=== PATIENT | female | born 1950 | race Caucasian/White ===

== ENCOUNTER 2016-08-26 20:39 | Observation (INO) | payer OTHER ==
[~2016-08-26] VITALS: Ht 152.4 cm; Wt 69.7 kg
[~2016-08-26 20:39] MED LIST: ABILIFY5 MG PO; ADULT LOW DOSE81 M1 PO; ASPERDRINK81 MG PO; ASPIR 8181 M1 PO; ASPIRIN BUFFER325 MG PO; Aspirin E.C. PO; BENADRYL25 MG PO; BUDEPRION XL150 MG PO; BUPROBAN150 MG PO; BUPROPION HCL150 M1 PO; BUTALB-APAP-CA1 EACH PO; CALCARB 600 W-1 EACH PO; CALCIUM + VITA1 EAC1 PO; CALCIUM 600 +1 EAC1 PO; CALCIUM CARBON600 M1 PO; CALCIUM600 MG PO; CELECOXIB200 MG PO; CIPRO500 MG PO; CLONAZEPAM0.5 MG PO; CYCLOBENZAPRINE10 MG PO; DESYREL100 MG PO; DILAUDID2 MG PO; EFFEXOR XR150 MG PO; EFFEXOR XR75 MG PO; ENDOCET 5-3251 EACH PO; Effexor XR PO; FLAGYL500 MG PO; HYDROCHLOROTHIA25 MG PO; IRON325 M1 PO; K-DUR10 MEQ PO; KLONOPIN0.5 M1 PO; KLONOPIN1 MG PO; LEVAQUIN750 MG PO; LEVO-T50 MCG PO; LEVOTHROID25 MCG PO; LEVOTHYROXINE125 MCG PO; LOW DOSE ASPIRI81 M1 PO; Levothroid,Synthroid PO; METOPROLOL SUCC25 MG PO; OMEPRAZOLE20 M2 PO; OMEPRAZOLE40 M1 PO; OXYCODONE HCL5 MG PO; OXYCONTIN10 MG PO; PERCOCET 5/31 TABLET PO; PHENERGAN PO; PLAVIX75 MG PO; POTASSIUM CHLO20 ME1 PO; PRILOSEC20 MG PO; PROMETHAZINE HC25 M1 PO; PYRIDIUM200 MG PO; SENNA PLUS TAB1 EACH PO; SIMVASTATIN80 M1 PO; SIMVASTATIN80 MG PO; SYNTHROID100 MCG PO; SYNTHROID25 MCG PO; SYNTHROID88 MCG PO; TOPROL XL25 MG PO; TOPROL XL6.25 MG PO; TYLENOL EXTRA500 MG PO; TYLENOL REGULA325 MG PO; VALIUM2 MG PO; VITAMIN B12-FO1 EACH PO; Vitamin B-12 PO; WELLBUTRIN SR150 MG PO; XANAX0.5 MG PO; XARELTO10 MG PO; ZOCOR80 MG PO; ZOFRAN ODT4 MG PO; ZOFRAN ODT8 MG PO; ZYBAN 150 MG T150 MG PO; Zocor PO
[2016-08-26 21:20] LABS: HEMATOCRIT 38.5 % (36.0-46.0); MCH 29.6 PG (29.0-34.0); MCHC 33.8 G/DL (30.0-36.0); MCV 87.7 FL (83-99); MEAN PLAT.VOLUME 9.2 uM^3 (9.5-12.4); PLATELET COUNT 346 K/uL (156-360); RBC DIS.WIDTH-CV 12.1 % (11.8-14.6); RBC DIS.WIDTH-SD 38.7 % (39-53); RED BLOOD COUNT 4.39 M/uL (3.80-5.20)
[2016-08-26 21:22] LABS: ADD MIUA? NO; BILIRUBIN NEGATIVE; BLOOD NEGATIVE; COLOR YELLOW ((YELLOW)); GLUCOSE (STRIP) NEGATIVE; KETONES NEGATIVE; LEUKOCYTES NEGATIVE; NITRITE NEGATIVE; PROTEIN (STRIP) NEGATIVE; SPECIFIC GRAVITY 1.016 (1.000-1.030); UROBILINOGEN 0.2 MG/DL (0.2-1.0)
[2016-08-26 21:26] LABS: CHLORIDE 103 mEq/L (99-109); POTASSIUM 3.5 mEq/L (3.7-5.4); SODIUM 140 mEq/L (136-147)
[2016-08-26 21:27] LABS: WHITE BLOOD COUNT 19.2 K/uL (4.1-10.2)
[2016-08-26 21:28] LABS: GLUCOSE 115 mg/dL (70-99)
[2016-08-26 21:30] LABS: ANION GAP 12 MEQ/L (2-14); TOTAL BILIRUBIN 0.3 mg/dL (0.0-1.0)
[2016-08-26 21:32] LABS: ALKALINE PHOSPHATASE 96 IU/L (3-129); GFR ESTIMATE (CALCULATED) > 59 mL/min/
[2016-08-26 21:33] LABS: UREA NITROGEN (BUN) 14 mg/dL (9-23)
[2016-08-26 23:06] LABS: LIPASE 103 U/L (1.0-51.0)
[2016-08-26 23:33] LABS: AMYLASE 81 IU/L (1-118)
[2016-08-27] MEDS ORDERED: XANAX XR0.5 MG PO (00:44)
[2016-08-27] MEDS ORDERED: SYNTHROID75 MCG PO (00:45)
[2016-08-27 01:39] LABS: EOSINOPHIL (%) 0.4 % (0-5); MONOCYTE (%) 3.1 % (3-12); NEUTROPHIL (%) 65.7 % (45-76)
[2016-08-27 01:40] LABS: IMMATURE GRANULOCYTE (%) 0.3 % (0.0-0.7); LYMPHOCYTE COUNT 2.8 K/uL (1.0-2.8); MONOCYTE COUNT 0.3 K/uL (0-0.8)
[2016-08-27 02:15] VITALS: BP 121/62
[2016-08-27 06:46] LABS: LIPASE 35 U/L (1.0-51.0)
[2016-08-27 08:45] VITALS: BP 101/55
[2016-08-27 10:29] LABS: ANION GAP 15 MEQ/L (2-14); CHLORIDE 107 MEQ/L (99-109); MAGNESIUM 2.1 mg/dl (1.3-2.7); POTASSIUM 3.9 MEQ/L (3.7-5.4); SODIUM 144 MEQ/L (136-147); TOTAL BILIRUBIN 0.3 MG/DL (0.0-1.0)
[2016-08-27 10:34] LABS: ALKALINE PHOSPHATASE 78 IU/L (3-129); GFR ESTIMATE (CALCULATED) > 59 mL/min/; GLUCOSE 98 mg/dL (70-99); UREA NITROGEN (BUN) 13 mg/dL (9-23)
[2016-08-27 12:16] LABS: EOSINOPHIL (%) 0.5 % (0-5); EOSINOPHIL COUNT 0.1 K/uL (0-0.3); HEMATOCRIT 33.9 % (36.0-46.0); IMMATURE GRANULOCYTE (%) 0.4 % (0.0-0.7); IMMATURE GRANULOCYTE COUNT 0.1 K/uL; INSTRUMENT ABS NEUTROPHIL CT 9.6 K/uL; LYMPHOCYTE COUNT 3.9 K/uL (1.0-2.8); MCHC 33.3 G/DL (30.0-36.0); MCV 89.9 FL (83-99); MONOCYTE (%) 6.1 % (3-12); MONOCYTE COUNT 0.9 K/uL (0-0.8); NEUTROPHIL (%) 65.9 % (45-76); NEUTROPHIL COUNT 9.6 K/uL (1.8-6.4); PLATELET COUNT 306 K/uL (156-360); RBC DIS.WIDTH-CV 12.5 % (11.8-14.6); RBC DIS.WIDTH-SD 40.4 % (39-53); RED BLOOD COUNT 3.77 M/uL (3.80-5.20); WHITE BLOOD COUNT 14.6 K/uL (4.1-10.2)
[2016-08-27 12:51] VITALS: BP 110/57
[2016-08-28] MEDS ORDERED: FLEXERIL10 MG PO (15:35)
== END 2016-08-27 13:43 | disposition home or self-care (01) ==
LOC: EME 20:39 → EDOF 08-27 00:43 → 5WEST 08-27 02:11
PROVIDERS: Internal Medicine; Nurse Practitioner Family; Physician Assistant Medical
DX: M54.5 Low back pain (principal); M62.830 Muscle spasm of back; D72.829 Elevated white blood cell count, unspecified; R79.89 Other specified abnormal findings of blood chemistry
CPT/HCPCS: 71020; 72131; 74176; 80053; 81003; 82150; 83605; 83690; 83735; 85025; 85027; 87040; 99281; 99285; G0378; J1650; J2270; J2405; J3010; J7030

== ENCOUNTER 2016-08-28 12:34 | Emergency (ER) | payer OTHER ==
[~2016-08-28] VITALS: Ht 165.1 cm; Wt 71.2 kg
[~2016-08-28 12:34] MED LIST changes: +SYNTHROID75 MCG PO; +XANAX XR0.5 MG PO
[2016-08-28 13:43] LABS: HEMATOCRIT 38.3 % (36.0-46.0); MCH 30.1 PG (29.0-34.0); MCHC 33.7 G/DL (30.0-36.0); MCV 89.3 FL (83-99); PLATELET COUNT 303 K/uL (156-360); RBC DIS.WIDTH-CV 12.3 % (11.8-14.6); RBC DIS.WIDTH-SD 39.6 % (39-53); RED BLOOD COUNT 4.29 M/uL (3.80-5.20)
[2016-08-28 13:52] LABS: CHLORIDE 104 mEq/L (99-109); POTASSIUM 3.8 mEq/L (3.7-5.4); SODIUM 142 mEq/L (136-147)
[2016-08-28 13:54] LABS: GLUCOSE 82 mg/dL (70-99)
[2016-08-28 13:56] LABS: ANION GAP 12 MEQ/L (2-14)
[2016-08-28 13:58] LABS: GFR ESTIMATE (CALCULATED) > 59 mL/min/
[2016-08-28 13:59] LABS: UREA NITROGEN (BUN) 12 mg/dL (9-23)
[2016-08-28] MEDS ORDERED: FLEXERIL10 MG PO (15:35)
[2016-08-28 16:11] VITALS: BP 115/61
== END 2016-08-28 16:15 | disposition home or self-care (01) ==
LOC: RME 12:34 → EME 12:34 → RME 16:15
PROVIDERS: Physician Assistant
DX: S39.012A Strain of muscle, fascia and tendon of lower back, initial encounter (principal); E78.5 Hyperlipidemia, unspecified; I10 Essential (primary) hypertension; K21.9 Gastro-esophageal reflux disease without esophagitis; I25.10 Atherosclerotic heart disease of native coronary artery without angina pectoris; Z98.61 Coronary angioplasty status; Z79.82 Long term (current) use of aspirin
CPT/HCPCS: 80048; 81003; 85027; 99281; 99285; J3010; J3360; J7030

== ENCOUNTER 2016-09-20 14:04 | Observation (INO) | payer OTHER ==
[~2016-09-20] VITALS: Ht 154.9 cm; Wt 70.5 kg
[~2016-09-20 14:04] MED LIST changes: +FLEXERIL10 MG PO
[2016-09-20 15:03] LABS: HEMATOCRIT 34.5 % (36.0-46.0); MCH 29.5 PG (29.0-34.0); MCHC 33.9 G/DL (30.0-36.0); MCV 86.9 FL (83-99); PLATELET COUNT 314 K/uL (156-360); RBC DIS.WIDTH-CV 11.9 % (11.8-14.6); RBC DIS.WIDTH-SD 37.8 % (39-53); RED BLOOD COUNT 3.97 M/uL (3.80-5.20)
[2016-09-20 15:17] LABS: CHLORIDE 104 mEq/L (99-109); POTASSIUM 3.6 mEq/L (3.7-5.4); SODIUM 143 mEq/L (136-147)
[2016-09-20 15:18] LABS: GLUCOSE 81 mg/dL (70-99)
[2016-09-20 15:20] LABS: ANION GAP 12 MEQ/L (2-14)
[2016-09-20 15:22] LABS: GFR ESTIMATE (CALCULATED) > 59 mL/min/
[2016-09-20 15:23] LABS: UREA NITROGEN (BUN) 11 mg/dL (9-23)
[2016-09-20 15:26] LABS: TROP-I INTERPRETATION NEGATIVE; TROPONIN-I < 0.01 ng/mL (0.0-0.30)
[2016-09-20] MEDS ORDERED: XANAX XR1 MG PO (16:58)
[2016-09-20] MEDS ORDERED: WELLBUTRIN SR150 MG PO (17:00)
[2016-09-20 17:06] VITALS: BP 137/74
[2016-09-20 18:24] LABS: TROP-I INTERPRETATION NEGATIVE; TROPONIN-I < 0.01 ng/mL (0.0-0.30)
[2016-09-20 19:30] VITALS: BP 120/87
[2016-09-20 23:36] VITALS: BP 92/50
[2016-09-21 00:52] LABS: TROP-I INTERPRETATION NEGATIVE; TROPONIN-I < 0.01 ng/mL (0.0-0.30)
[2016-09-21 04:04] VITALS: BP 101/54
[2016-09-21 08:33] LABS: HEMATOCRIT 33.3 % (36.0-46.0); MCH 30.2 PG (29.0-34.0); MCHC 33.9 G/DL (30.0-36.0); MEAN PLAT.VOLUME 9.1 uM^3 (9.5-12.4); PLATELET COUNT 280 K/uL (156-360); RBC DIS.WIDTH-CV 12.1 % (11.8-14.6); RBC DIS.WIDTH-SD 39.5 % (39-53); RED BLOOD COUNT 3.74 M/uL (3.80-5.20); WHITE BLOOD COUNT 11.7 K/uL (4.1-10.2)
[2016-09-21 09:01] LABS: ANION GAP 11 MEQ/L (2-14); CHLORIDE 99 MEQ/L (99-109); GFR ESTIMATE (CALCULATED) > 59 mL/min/; POTASSIUM 3.4 MEQ/L (3.7-5.4); SAMPLE HEMOLYSIS CHECK 0; SAMPLE ICTERIC CHECK 0; SAMPLE LIPEMIA CHECK 0; SODIUM 136 MEQ/L (136-147); UREA NITROGEN (BUN) 11 mg/dL (9-23)
[2016-09-21 09:03] LABS: GLUCOSE 107 mg/dL (70-99)
[2016-09-21 09:10] VITALS: BP 118/61
[2016-09-21 12:15] VITALS: BP 118/68
[2016-09-21 13:15] LABS: D-DIMER ELISA 0.28 mg/L FEU (< 0.57)
[2016-09-21] MEDS ORDERED: CYCLOBENZAPRINE5 MG PO (13:36)
== END 2016-09-21 15:55 | disposition home or self-care (01) ==
LOC: EME 14:04 → 5WEST 16:09 → EDOF 16:09 → 5WEST 17:00
PROVIDERS: Emergency Medicine; Hospitalist; Physician Assistant Medical
DX: R07.89 Other chest pain (principal); I25.10 Atherosclerotic heart disease of native coronary artery without angina pectoris; Z95.5 Presence of coronary angioplasty implant and graft; I10 Essential (primary) hypertension; E78.5 Hyperlipidemia, unspecified; F32.9 Major depressive disorder, single episode, unspecified; G43.909 Migraine, unspecified, not intractable, without status migrainosus; K21.9 Gastro-esophageal reflux disease without esophagitis; J45.909 Unspecified asthma, uncomplicated; E03.9 Hypothyroidism, unspecified
CPT/HCPCS: 71010; 71020; 80048; 81003; 84484; 85027; 85379; 93005; 99281; 99285; G0378; J2270; J2405

== ENCOUNTER 2016-11-03 17:55 | Emergency (ER) | payer OTHER ==
[~2016-11-03] VITALS: Ht 154.9 cm; Wt 73.5 kg
[~2016-11-03 17:55] MED LIST changes: +CYCLOBENZAPRINE5 MG PO; +XANAX XR1 MG PO
[2016-11-03 19:33] LABS: ADD MIUA? NO; BILIRUBIN NEGATIVE; BLOOD NEGATIVE; COLOR STRAW ((YELLOW)); GLUCOSE (STRIP) NEGATIVE; KETONES NEGATIVE; LEUKOCYTES NEGATIVE; NITRITE NEGATIVE; PROTEIN (STRIP) NEGATIVE; SPECIFIC GRAVITY 1.008 (1.000-1.030); UCUL ADDED? NO; UROBILINOGEN 0.2 MG/DL (0.2-1.0)
[2016-11-03] MEDS ORDERED: COLACE100 MG PO (21:19)
[2016-11-03] MEDS ORDERED: SKELAXIN800 MG PO (21:19)
[2016-11-03] MEDS ORDERED: PERCOCET 5/31 TABLET PO (21:19)
[2016-11-03 21:29] VITALS: BP 102/64
== END 2016-11-03 21:35 | disposition home or self-care (01) ==
LOC: EXP 17:55 → EME 17:55 → EXP 21:35
PROVIDERS: Physician Assistant
DX: M54.16 Radiculopathy, lumbar region (principal); M79.604 Pain in right leg; I10 Essential (primary) hypertension; E03.9 Hypothyroidism, unspecified; E78.00 Pure hypercholesterolemia, unspecified; K44.9 Diaphragmatic hernia without obstruction or gangrene; Z79.02 Long term (current) use of antithrombotics/antiplatelets
CPT/HCPCS: 74176; 81003; 99281; 99284; J3010; J8540

== ENCOUNTER 2017-03-02 00:58 | Emergency (ER) | payer OTHER ==
[~2017-03-02] VITALS: Ht 157.5 cm; Wt 73.9 kg
[~2017-03-02 00:58] MED LIST changes: +COLACE100 MG PO; +SKELAXIN800 MG PO
[2017-03-02] MEDS ORDERED: FLEXERIL10 MG PO (01:50)
[2017-03-02] MEDS ORDERED: MEDROL DOSEPAK4 MG PO (01:50)
[2017-03-02 02:42] VITALS: BP 143/68
== END 2017-03-02 02:43 | disposition home or self-care (01) ==
LOC: EME 00:58 → EXP 00:58
DX: M62.830 Muscle spasm of back (principal); K21.9 Gastro-esophageal reflux disease without esophagitis; I10 Essential (primary) hypertension; E78.5 Hyperlipidemia, unspecified; F41.9 Anxiety disorder, unspecified; F32.9 Major depressive disorder, single episode, unspecified; I25.10 Atherosclerotic heart disease of native coronary artery without angina pectoris; Z95.5 Presence of coronary angioplasty implant and graft; Z79.82 Long term (current) use of aspirin
CPT/HCPCS: 99281; 99284; J7512

== ENCOUNTER 2017-06-25 04:12 | Emergency (ER) | payer OTHER ==
[~2017-06-25] VITALS: Ht 152.4 cm; Wt 70.1 kg
[~2017-06-25 04:12] MED LIST changes: +MEDROL DOSEPAK4 MG PO
[2017-06-25 04:45] LABS: HEMATOCRIT 36.9 % (36.0-46.0); HEMOGLOBIN 13.1 G/DL (11.9-15.5); MCH 30.3 PG (29.0-34.0); MCHC 35.5 G/DL (30.0-36.0); MCV 85.4 FL (83-99); PLATELET COUNT 233 K/uL (156-360); RBC DIS.WIDTH-CV 11.9 % (11.8-14.6); RBC DIS.WIDTH-SD 36.9 % (39-53); RED BLOOD COUNT 4.32 M/uL (3.80-5.20); WHITE BLOOD COUNT 10.6 K/uL (4.1-10.2)
[2017-06-25] MEDS ORDERED: ROBITUSSIN AC,T10 ML PO (05:38)
[2017-06-25 05:50] LABS: CHLORIDE 103 mEq/L (99-109); POTASSIUM 4.1 mEq/L (3.7-5.4); SODIUM 141 mEq/L (136-147)
[2017-06-25 05:52] LABS: GLUCOSE 89 mg/dL (70-99)
[2017-06-25 05:56] LABS: CREATININE 0.8 mg/dL (0.6-1.3); GFR ESTIMATE (CALCULATED) > 59 mL/min/
[2017-06-25 05:57] LABS: UREA NITROGEN (BUN) 12 mg/dL (9-23)
[2017-06-25 06:45] VITALS: BP 137/86
== END 2017-06-25 06:48 | disposition home or self-care (01) ==
LOC: EME 04:12
DX: J11.1 Influenza due to unidentified influenza virus with other respiratory manifestations (principal); E86.0 Dehydration; F32.9 Major depressive disorder, single episode, unspecified; E78.5 Hyperlipidemia, unspecified; I10 Essential (primary) hypertension; G43.909 Migraine, unspecified, not intractable, without status migrainosus; K21.9 Gastro-esophageal reflux disease without esophagitis; F41.9 Anxiety disorder, unspecified; I25.10 Atherosclerotic heart disease of native coronary artery without angina pectoris; Z88.8 Allergy status to other drugs, medicaments and biological substances; Z88.6 Allergy status to analgesic agent; Z88.5 Allergy status to narcotic agent; Z95.5 Presence of coronary angioplasty implant and graft
CPT/HCPCS: 71046; 80048; 85027; 87502; 99281; 99285; J2405; J7030

== ENCOUNTER 2017-06-28 01:55 | Inpatient (IN) | payer OTHER ==
[~2017-06-28] VITALS: Ht 160 cm; Wt 68.5 kg
[~2017-06-28 01:55] MED LIST changes: +ROBITUSSIN AC,T10 ML PO
[2017-06-28 02:55] LABS: HEMOGLOBIN 12.8 G/DL (11.9-15.5); MCH 30.3 PG (29.0-34.0); MCHC 35.6 G/DL (30.0-36.0); MCV 85.3 FL (83-99); PLATELET COUNT 245 K/uL (156-360); RED BLOOD COUNT 4.22 M/uL (3.80-5.20); WHITE BLOOD COUNT 9.5 K/uL (4.1-10.2)
[2017-06-28 03:06] LABS: ALBUMIN 4.1 g/dL (3.2-4.8)
[2017-06-28 03:07] LABS: CHLORIDE 101 mEq/L (99-109); SODIUM 138 mEq/L (136-147)
[2017-06-28 03:09] LABS: GLUCOSE 121 mg/dL (70-99); TOTAL PROTEIN 7.3 g/dL (6.4-8.3)
[2017-06-28 03:11] LABS: TOTAL BILIRUBIN 0.4 mg/dL (0.0-1.0)
[2017-06-28 03:12] LABS: ALKALINE PHOSPHATASE 100 IU/L (3-129)
[2017-06-28 03:13] LABS: CREATININE 0.9 mg/dL (0.6-1.3); GFR ESTIMATE (CALCULATED) > 59 mL/min/
[2017-06-28 03:14] LABS: AST (GOT) 19 IU/L (2-34); UREA NITROGEN (BUN) 8 mg/dL (9-23)
[2017-06-28 03:16] LABS: ALT (GPT) 10 IU/L (3-49); LIPASE 19 U/L (1.0-51.0)
[2017-06-28 06:21] LABS: APPEARANCE CLEAR ((CLEAR)); BILIRUBIN NEGATIVE; BLOOD NEGATIVE; COLOR STRAW ((YELLOW)); GLUCOSE (STRIP) NEGATIVE; KETONES 5; LEUKOCYTES NEGATIVE; NITRITE NEGATIVE; PROTEIN (STRIP) NEGATIVE; SPECIFIC GRAVITY 1.005 (1.000-1.030); UCUL ADDED? NO; UROBILINOGEN 0.2 MG/DL (0.2-1.0)
[2017-06-28] MEDS ORDERED: LEVOTHYROXINE75 MCG PO (06:31)
[2017-06-28] MEDS ORDERED: METOPROLOL SUCC25 MG PO (06:31)
[2017-06-28] MEDS ORDERED: ASPIR-LOW81 MG PO (06:32)
[2017-06-28] MEDS ORDERED: HYDROCHLOROTHIA25 MG PO (06:32)
[2017-06-28] MEDS ORDERED: VENLAFAXINE HC150 M1 PO (06:33)
[2017-06-28] MEDS ORDERED: XANAX XR1 MG PO (06:33)
[2017-06-28] MEDS ORDERED: SIMVASTATIN80 MG PO (06:34)
[2017-06-28] MEDS ORDERED: CLOPIDOGREL75 MG PO (06:34)
[2017-06-28] MEDS ORDERED: DESYREL100 MG PO (06:35)
[2017-06-28] MEDS ORDERED: CALCIUM 500 MG1 EACH PO (09:05)
[2017-06-28] MEDS ORDERED: OMEPRAZOLE40 M1 PO (09:05)
[2017-06-28 10:51] VITALS: BP 100/70
[2017-06-28 15:58] VITALS: BP 102/74
[2017-06-28 19:20] VITALS: BP 116/72
[2017-06-28 23:30] VITALS: BP 121/70
[2017-06-29 03:42] VITALS: BP 115/72
[2017-06-29 06:26] LABS: BASOPHIL (%) 0.1 % (0-1); EOSINOPHIL (%) 0 % (0-5); HEMATOCRIT 32.6 % (36.0-46.0); HEMOGLOBIN 11.2 G/DL (11.9-15.5); IMMATURE GRANULOCYTE (%) 0.3 % (0.0-0.7); LYMPHOCYTE COUNT 3.6 K/uL (1.0-2.8); MCH 30.2 PG (29.0-34.0); MCHC 34.4 G/DL (30.0-36.0); MCV 87.9 FL (83-99); MONOCYTE (%) 4.5 % (3-12); MONOCYTE COUNT 0.3 K/uL (0-0.8); NEUTROPHIL (%) 47.1 % (45-76); NEUTROPHIL COUNT 3.5 K/uL (1.8-6.4); PLATELET COUNT 214 K/uL (156-360); RBC DIS.WIDTH-CV 12.2 % (11.8-14.6); RBC DIS.WIDTH-SD 39.4 % (39-53); RED BLOOD COUNT 3.71 M/uL (3.80-5.20); WHITE BLOOD COUNT 7.5 K/uL (4.1-10.2)
[2017-06-29 07:09] LABS: CHLORIDE 110 MEQ/L (99-109); CREATININE 0.6 MG/DL (0.6-1.3); GFR ESTIMATE (CALCULATED) > 59 mL/min/; UREA NITROGEN (BUN) 4 mg/dL (9-23)
[2017-06-29 07:13] LABS: GLUCOSE 84 mg/dL (70-99); POTASSIUM 3.9 MEQ/L (3.7-5.4); SODIUM 145 MEQ/L (136-147)
[2017-06-29 07:55] VITALS: BP 155/80
[2017-06-29 16:00] VITALS: BP 153/70
[2017-06-29 19:35] VITALS: BP 141/82
[2017-06-29] MEDS ORDERED: PROAIR HFA8.5 GM IH (20:48)
[2017-06-29] MEDS ORDERED: ZITHROMAX500 MG PO (20:48)
== END 2017-06-29 21:35 | disposition home or self-care (01) | DRG 194 ==
LOC: EME 01:55 → 2EAST 07:16 → EDOF 07:16 → ENRESERV 07:22 → EDOF 07:35 → ENRESERV 08:29 → 2EAST 09:41
PROVIDERS: Emergency Medicine; Family Medicine Sports Medicine; Internal Medicine Pulmonary Disease
DX: J10.00 Influenza due to other identified influenza virus with unspecified type of pneumonia (principal); J18.9 Pneumonia, unspecified organism; F33.9 Major depressive disorder, recurrent, unspecified; J98.11 Atelectasis; I10 Essential (primary) hypertension; E78.5 Hyperlipidemia, unspecified; I25.10 Atherosclerotic heart disease of native coronary artery without angina pectoris; E87.6 Hypokalemia; R09.02 Hypoxemia; E86.0 Dehydration; G43.909 Migraine, unspecified, not intractable, without status migrainosus; E03.9 Hypothyroidism, unspecified; K21.9 Gastro-esophageal reflux disease without esophagitis; M19.90 Unspecified osteoarthritis, unspecified site; E66.01 Morbid (severe) obesity due to excess calories; R19.7 Diarrhea, unspecified; J10.1 Influenza due to other identified influenza virus with other respiratory manifestations; R11.2 Nausea with vomiting, unspecified; E11.9 Type 2 diabetes mellitus without complications; F41.1 Generalized anxiety disorder; J20.9 Acute bronchitis, unspecified; Z86.14 Personal history of Methicillin resistant Staphylococcus aureus infection; Z95.5 Presence of coronary angioplasty implant and graft; Z91.018 Allergy to other foods; Z87.440 Personal history of urinary (tract) infections; Z88.5 Allergy status to narcotic agent; Z79.899 Other long term (current) drug therapy; J31.0 Chronic rhinitis; J09.X2 Influenza due to identified novel influenza A virus with other respiratory manifestations; Z68.27 Body mass index [BMI] 27.0-27.9, adult
CPT/HCPCS: 70220; 71046; 80048; 80053; 81003; 83605; 83690; 85025; 85027; 87040; 87449; 87502; 94640; 99202; 99281; 99284; 99285; J0456; J0696; J1650; J2405; J3480; J7030; J7120